=== PATIENT | female | born 1965 | race African-American/Black ===

== ENCOUNTER 2016-03-03 17:06 | Emergency (ER) | payer OTHER ==
[~2016-03-03] VITALS: Ht 175.3 cm; Wt 108.0 kg
[~2016-03-03 17:06] MED LIST: Ecotrin PO; NO HOME MEDS; TRAMADOL HCL50 MG PO
[2016-03-03 18:02] LABS: HEMATOCRIT 42.4 % (36.0-46.0); MCH 29.8 PG (29.0-34.0); MCHC 34.4 G/DL (30.0-36.0); MCV 86.5 FL (83-99); MEAN PLAT.VOLUME 8.7 uM^3 (9.5-12.4); PLATELET COUNT 258 K/uL (156-360); RBC DIS.WIDTH-CV 12.7 % (11.8-14.6); RBC DIS.WIDTH-SD 39.5 % (39-53); WHITE BLOOD COUNT 6.1 K/uL (4.1-10.2)
[2016-03-03 18:09] LABS: CHLORIDE 109 mEq/L (99-109); SODIUM 135 mEq/L (136-147)
[2016-03-03 18:10] LABS: GLUCOSE 80 mg/dL (70-99)
[2016-03-03 18:12] LABS: ANION GAP 7 MEQ/L (2-14)
[2016-03-03 18:14] LABS: GFR ESTIMATE (CALCULATED) > 59 mL/min/
[2016-03-03 18:15] LABS: UREA NITROGEN (BUN) 13 mg/dL (9-23)
[2016-03-03 18:26] LABS: TROP-I INTERPRETATION NEGATIVE; TROPONIN-I < 0.01 ng/mL (0.0-0.30)
[2016-03-03 19:48] LABS: TOTAL BILIRUBIN 0.3 mg/dL (0.0-1.0)
[2016-03-03 19:49] LABS: ALKALINE PHOSPHATASE 60 IU/L (3-129)
[2016-03-03 19:53] LABS: LIPASE 71 U/L (1.0-51.0)
[2016-03-03 20:19] LABS: TROP-I INTERPRETATION NEGATIVE; TROPONIN-I < 0.01 ng/mL (0.0-0.30)
[2016-03-03] MEDS ORDERED: SKELAXIN800 MG PO (20:25)
[2016-03-03] MEDS ORDERED: NAPROXEN500 MG PO (20:25)
[2016-03-03 20:41] VITALS: BP 137/91
== END 2016-03-03 20:43 | disposition home or self-care (01) ==
LOC: EME 17:06
PROVIDERS: Physician Assistant
DX: R07.9 Chest pain, unspecified (principal)
CPT/HCPCS: 71020; 80048; 80053; 83690; 84484; 85027; 93005; 99281; 99284

== ENCOUNTER 2016-07-31 01:10 | Inpatient (IN) | payer OTHER ==
[~2016-07-31] VITALS: Ht 177.8 cm; Wt 115.4 kg
[~2016-07-31 01:10] MED LIST changes: +NAPROXEN500 MG PO; +SKELAXIN800 MG PO
[2016-07-31 01:34] LABS: EOSINOPHIL (%) 0.4 % (0-5); IMMATURE GRANULOCYTE (%) 1.1 % (0.0-0.7); IMMATURE GRANULOCYTE COUNT 0.1 K/uL; INSTRUMENT ABS NEUTROPHIL CT 4.4 K/uL; LYMPHOCYTE COUNT 2.7 K/uL (1.0-2.8); MCH 29.2 PG (29.0-34.0); MCHC 32.8 G/DL (30.0-36.0); MCV 89.3 FL (83-99); MEAN PLAT.VOLUME 8.6 uM^3 (9.5-12.4); MONOCYTE (%) 3.9 % (3-12); MONOCYTE COUNT 0.3 K/uL (0-0.8); NEUTROPHIL (%) 58.8 % (45-76); NEUTROPHIL COUNT 4.4 K/uL (1.8-6.4); PLATELET COUNT 230 K/uL (156-360); RBC DIS.WIDTH-CV 12.6 % (11.8-14.6); RBC DIS.WIDTH-SD 41.8 % (39-53); RED BLOOD COUNT 4.48 M/uL (3.80-5.20); WHITE BLOOD COUNT 7.5 K/uL (4.1-10.2)
[2016-07-31 01:41] LABS: AMYLASE 60 IU/L (1-118); CHLORIDE 108 mEq/L (99-109); POTASSIUM 3.6 mEq/L (3.7-5.4); SODIUM 140 mEq/L (136-147)
[2016-07-31 01:42] LABS: GLUCOSE 144 mg/dL (70-99)
[2016-07-31 01:44] LABS: ANION GAP 11 MEQ/L (2-14)
[2016-07-31 01:46] LABS: GFR ESTIMATE (CALCULATED) > 59 mL/min/; SERUM ETHYL ALCOHOL < 10 mg/dL
[2016-07-31 01:47] LABS: UREA NITROGEN (BUN) 11 mg/dL (9-23)
[2016-07-31 01:49] LABS: LIPASE 47 U/L (1.0-51.0)
[2016-07-31 01:53] LABS: TROP-I INTERPRETATION NEGATIVE; TROPONIN-I < 0.01 ng/mL (0.0-0.30)
[2016-07-31 01:55] LABS: QUANTITATIVE HCG < 4.0 MIU/ML
[2016-07-31 03:39] LABS: ADD MIUA? YES; BILIRUBIN NEGATIVE; BLOOD MODERATE; COLOR YELLOW ((YELLOW)); GLUCOSE (STRIP) NEGATIVE; KETONES NEGATIVE; LEUKOCYTES TRACE; NITRITE NEGATIVE; PROTEIN (STRIP) NEGATIVE; UROBILINOGEN 0.2 MG/DL (0.2-1.0)
[2016-07-31 03:52] LABS: SPECIFIC GRAVITY 1.068 (1.000-1.030)
[2016-07-31 04:03] LABS: BACTERIA NONE SEEN /HPF; EPITHELIAL CELLS RARE /HPF; HYALINE CASTS 0-5 /LPF; MUCUS TRACE /LPF; RED BLOOD CELLS 0-5 /HPF (0-5); UCUL ADDED? NO
[2016-07-31 04:05] LABS: AMPHETAMINE NEGATIVE (500 ng/mL); BARBITURATES NEGATIVE (200 ng/mL); BENZODIAZEPINES NEGATIVE (150 ng/mL); COCAINE NEGATIVE (150 ng/mL); INTERNAL CONTROLS VALID? YES; METHADONE NEGATIVE (200 ng/mL); METHAMPHETAMINE NEGATIVE (500 ng/mL); OPIATES (MORPHINE) NEGATIVE (100 ng/mL); OXYCODONE NEGATIVE (100 ng/mL); PHENCYCLIDINE NEGATIVE (25 ng/mL); PROPOXYPHENE NEGATIVE (300 ng/mL); THC CANNABINOIDS NEGATIVE (50 ng/mL); TRICYCLIC ANTIDEPRESSANTS NEGATIVE (300 ng/mL)
[2016-07-31 05:49] VITALS: BP 108/70
[2016-07-31 06:15] LABS: EOSINOPHIL (%) 0.1 % (0-5); IMMATURE GRANULOCYTE (%) 0.4 % (0.0-0.7); LYMPHOCYTE COUNT 0.8 K/uL (1.0-2.8); MCH 29.6 PG (29.0-34.0); MCV 89.7 FL (83-99); MONOCYTE (%) 7.1 % (3-12); MONOCYTE COUNT 0.7 K/uL (0-0.8); NEUTROPHIL (%) 83.6 % (45-76); RBC DIS.WIDTH-CV 12.5 % (11.8-14.6); RBC DIS.WIDTH-SD 41.5 % (39-53); RED BLOOD COUNT 4.46 M/uL (3.80-5.20); WHITE BLOOD COUNT 9.6 K/uL (4.1-10.2)
[2016-07-31 06:45] LABS: ANION GAP 10 MEQ/L (2-14); CHLORIDE 107 MEQ/L (99-109); GFR ESTIMATE (CALCULATED) > 59 mL/min/; GLUCOSE 116 mg/dL (70-99); POTASSIUM 4.2 MEQ/L (3.7-5.4); SAMPLE HEMOLYSIS CHECK 1; SAMPLE ICTERIC CHECK 0; SAMPLE LIPEMIA CHECK 0; SODIUM 137 MEQ/L (136-147); UREA NITROGEN (BUN) 9 mg/dL (9-23)
[2016-07-31 06:51] LABS: MEAN PLAT.VOLUME 8.6 uM^3 (9.5-12.4); PLAT.SUFFICIENCY ADEQUATE; PLATELET CLUMPS PRESENT - PLATELET COUNTS APPEARS DECREASED
[2016-07-31 08:25] VITALS: BP 132/81
[2016-07-31 12:31] VITALS: BP 126/81
[2016-07-31 16:10] VITALS: BP 138/80
[2016-07-31 19:55] VITALS: BP 115/64
[2016-07-31 23:37] VITALS: BP 100/59
[2016-08-01 04:13] VITALS: BP 132/75
[2016-08-01 06:50] LABS: EOSINOPHIL (%) 0 % (0-5); HEMATOCRIT 34.9 % (36.0-46.0); IMMATURE GRANULOCYTE (%) 0.2 % (0.0-0.7); INSTRUMENT ABS NEUTROPHIL CT 3.4 K/uL; LYMPHOCYTE COUNT 1.4 K/uL (1.0-2.8); MCH 30.2 PG (29.0-34.0); MCHC 33.5 G/DL (30.0-36.0); MCV 89.9 FL (83-99); MEAN PLAT.VOLUME 9.1 uM^3 (9.5-12.4); MONOCYTE (%) 8.7 % (3-12); MONOCYTE COUNT 0.5 K/uL (0-0.8); NEUTROPHIL (%) 64.2 % (45-76); NEUTROPHIL COUNT 3.4 K/uL (1.8-6.4); PLATELET COUNT 180 K/uL (156-360); RBC DIS.WIDTH-CV 12.9 % (11.8-14.6); RBC DIS.WIDTH-SD 42.8 % (39-53); RED BLOOD COUNT 3.88 M/uL (3.80-5.20); WHITE BLOOD COUNT 5.3 K/uL (4.1-10.2)
[2016-08-01 06:53] LABS: ANION GAP 5 MEQ/L (2-14); CHLORIDE 106 MEQ/L (99-109); POTASSIUM 3.8 MEQ/L (3.7-5.4); SAMPLE HEMOLYSIS CHECK 0; SAMPLE ICTERIC CHECK 0; SAMPLE LIPEMIA CHECK 0; SODIUM 135 MEQ/L (136-147)
[2016-08-01 06:59] LABS: GFR ESTIMATE (CALCULATED) > 59 mL/min/; GLUCOSE 105 mg/dL (70-99); UREA NITROGEN (BUN) 7 mg/dL (9-23)
[2016-08-01 08:12] VITALS: BP 103/61
[2016-08-01 12:09] VITALS: BP 109/57
[2016-08-01 16:01] VITALS: BP 116/75
[2016-08-01 20:29] VITALS: BP 113/58
[2016-08-01 23:20] VITALS: BP 99/57
[2016-08-02 08:59] VITALS: BP 105/68
[2016-08-02 09:00] VITALS: BP 105/68
[2016-08-02 12:17] VITALS: BP 118/74
[2016-08-02 17:00] VITALS: BP 134/82
[2016-08-02 19:20] VITALS: BP 120/71
[2016-08-02 23:47] VITALS: BP 98/59
[2016-08-03 04:04] VITALS: BP 117/67
[2016-08-03 07:44] VITALS: BP 114/66
[2016-08-03] MEDS ORDERED: OXYCODONE-APAP1 EACH PO (09:07)
[2016-08-03] MEDS ORDERED: ELIQUIS2.5 MG PO (09:07)
[2016-08-03] MEDS ORDERED: PANTOPRAZOLE SO40 MG PO (09:08)
[2016-08-03] MEDS ORDERED: ONDANSETRON4 MG/2 ML IV (09:08)
[2016-08-03] MEDS ORDERED: DOCUSATE SODIU100 MG PO (09:08)
[2016-08-03 11:19] VITALS: BP 111/62
[2016-08-03 16:04] VITALS: BP 111/71
== END 2016-08-03 16:21 | DRG 552 ==
LOC: EME → TRA 01:10 → 3EAST 03:48 → EDOF 03:48 → 3EAST 03:48 → EDOF 05:09 → 3EAST 05:32
PROVIDERS: Emergency Medicine; Surgery
PROC: 0PSJXZZ Reposition Left Radius, External Approach (ICD-10-PCS; principal; 2016-07-31)
DX: S12.600A Unspecified displaced fracture of seventh cervical vertebra, initial encounter for closed fracture (principal); G89.11 Acute pain due to trauma; V43.62XA Car passenger injured in collision with other type car in traffic accident, initial encounter; S52.502A Unspecified fracture of the lower end of left radius, initial encounter for closed fracture; S00.03XA Contusion of scalp, initial encounter; S12.500A Unspecified displaced fracture of sixth cervical vertebra, initial encounter for closed fracture; S32.049A Unspecified fracture of fourth lumbar vertebra, initial encounter for closed fracture; S32.019A Unspecified fracture of first lumbar vertebra, initial encounter for closed fracture; S50.311A Abrasion of right elbow, initial encounter; G89.29 Other chronic pain; M54.9 Dorsalgia, unspecified; M51.37 Other intervertebral disc degeneration, lumbosacral region; S22.069A Unspecified fracture of T7-T8 vertebra, initial encounter for closed fracture; S93.402A Sprain of unspecified ligament of left ankle, initial encounter
CPT/HCPCS: 70450; 71260; 72125; 72129; 72132; 73080; 73100; 73110; 73610; 74177; 80048; 80048 91; 81003; 82150; 83690; 84484; 84702; 85025; 85025 91; 86900; 86901; 93005; 97530 GP; 99281; 99285; C9113; G0480; J0690; J1170; J2270; J2405; J3010; J7030

== ENCOUNTER 2016-08-03 10:45 | Inpatient (IN) | payer OTHER ==
[~2016-08-03] VITALS: Ht 175.3 cm; Wt 105.0 kg
[~2016-08-03 10:45] MED LIST changes: +DOCUSATE SODIU100 MG PO; +ELIQUIS2.5 MG PO; +ONDANSETRON4 MG/2 ML IV; +OXYCODONE-APAP1 EACH PO; +PANTOPRAZOLE SO40 MG PO
[2016-08-03 16:42] VITALS: BP 127/71
[2016-08-04 00:02] VITALS: BP 119/68
[2016-08-04 05:47] VITALS: BP 130/88
[2016-08-04 05:55] LABS: HEMATOCRIT 37.2 % (36.0-46.0); MCH 30.8 PG (29.0-34.0); MCHC 34.7 G/DL (30.0-36.0); MCV 88.8 FL (83-99); MEAN PLAT.VOLUME 8.8 uM^3 (9.5-12.4); PLATELET COUNT 254 K/uL (156-360); RBC DIS.WIDTH-CV 12.5 % (11.8-14.6); RBC DIS.WIDTH-SD 40.5 % (39-53); RED BLOOD COUNT 4.19 M/uL (3.80-5.20); WHITE BLOOD COUNT 4.5 K/uL (4.1-10.2)
[2016-08-04 06:38] LABS: ALKALINE PHOSPHATASE 44 IU/L (3-129); ANION GAP 7 MEQ/L (2-14); CHLORIDE 106 MEQ/L (99-109); GFR ESTIMATE (CALCULATED) > 59 mL/min/; GLUCOSE 91 mg/dL (70-99); POTASSIUM 4.2 MEQ/L (3.7-5.4); SAMPLE HEMOLYSIS CHECK 0; SAMPLE ICTERIC CHECK 0; SAMPLE LIPEMIA CHECK 0; SODIUM 139 MEQ/L (136-147); TOTAL BILIRUBIN 0.6 MG/DL (0.0-1.0); UREA NITROGEN (BUN) 11 mg/dL (9-23)
[2016-08-04 15:47] VITALS: BP 127/95
[2016-08-05 05:27] VITALS: BP 103/61
[2016-08-05 15:03] VITALS: BP 104/59
[2016-08-06 05:11] VITALS: BP 108/59
[2016-08-06 15:06] VITALS: BP 134/78
[2016-08-07 05:15] VITALS: BP 104/59
[2016-08-07 15:27] VITALS: BP 120/74
[2016-08-08 05:10] VITALS: BP 131/87
[2016-08-08 15:30] VITALS: BP 125/81
[2016-08-08 15:55] VITALS: BP 176/96
[2016-08-09 06:00] VITALS: BP 121/72
[2016-08-09 15:37] VITALS: BP 84/53
[2016-08-09] MEDS ORDERED: PERI-COLACE TA1 EACH PO (17:06)
[2016-08-09] MEDS ORDERED: POLYETHYLENE GL17 GM PO (17:06)
[2016-08-09] MEDS ORDERED: ASCORBIC ACID500 MG PO (17:07)
[2016-08-09] MEDS ORDERED: NEURONTIN300 MG PO (17:08)
[2016-08-09] MEDS ORDERED: MULTIPLE VITAM1 EAC1 PO (17:08)
[2016-08-09] MEDS ORDERED: FOLIC ACID1 MG PO (17:08)
[2016-08-09] MEDS ORDERED: LAXATIVE5 M1 PO (17:09)
[2016-08-09] MEDS ORDERED: MILK OF MAGNESI10 ML PO (17:09)
[2016-08-09] MEDS ORDERED: ONDANSETRON ODT4 MG PO (17:10)
[2016-08-09] MEDS ORDERED: DULCOLAX10 MG PR (17:11)
[2016-08-09] MEDS ORDERED: PROMETHAZINE HC25 M1 PO (17:11)
[2016-08-09] MEDS ORDERED: PERCOCET 5/31 TABLET PO (17:13)
[2016-08-09] MEDS ORDERED: ELIQUIS2.5 MG PO (17:14)
[2016-08-09] MEDS ORDERED: COLACE100 MG PO (17:15)
[2016-08-09 18:07] VITALS: BP 131/86
[2016-08-10 05:18] VITALS: BP 105/58
[2016-08-10 16:20] VITALS: BP 106/68
[2016-08-11 05:11] VITALS: BP 119/70
[2016-08-11 13:30] LABS: ALKALINE PHOSPHATASE 98 IU/L (3-129); ANION GAP 7 MEQ/L (2-14); CHLORIDE 104 MEQ/L (99-109); GFR ESTIMATE (CALCULATED) > 59 mL/min/; GLUCOSE 133 mg/dL (70-99); POTASSIUM 3.6 MEQ/L (3.7-5.4); SAMPLE HEMOLYSIS CHECK 0; SAMPLE ICTERIC CHECK 0; SAMPLE LIPEMIA CHECK 0; SODIUM 136 MEQ/L (136-147); TOTAL BILIRUBIN 0.7 MG/DL (0.0-1.0); UREA NITROGEN (BUN) 11 mg/dL (9-23)
[2016-08-11 13:31] LABS: EOSINOPHIL (%) 0.1 % (0-5); HEMATOCRIT 36.1 % (36.0-46.0); IMMATURE GRANULOCYTE (%) 0.3 % (0.0-0.7); LYMPHOCYTE COUNT 2.3 K/uL (1.0-2.8); MCH 30.2 PG (29.0-34.0); MCHC 33.8 G/DL (30.0-36.0); MCV 89.4 FL (83-99); MEAN PLAT.VOLUME 8.4 uM^3 (9.5-12.4); MONOCYTE (%) 3.7 % (3-12); MONOCYTE COUNT 0.5 K/uL (0-0.8); NEUTROPHIL (%) 77.9 % (45-76); PLATELET COUNT 296 K/uL (156-360); RBC DIS.WIDTH-CV 12.7 % (11.8-14.6); RBC DIS.WIDTH-SD 41.6 % (39-53); RED BLOOD COUNT 4.04 M/uL (3.80-5.20); WHITE BLOOD COUNT 12.8 K/uL (4.1-10.2)
[2016-08-11] MEDS ORDERED: POLYETHYLENE GL17 GM PO (14:32)
[2016-08-11] MEDS ORDERED: GABAPENTIN300 MG PO (14:32)
[2016-08-11] MEDS ORDERED: PANTOPRAZOLE SO40 MG PO (14:32)
[2016-08-11] MEDS ORDERED: ENDOCET 5-3251 EACH PO (14:32)
[2016-08-11] MEDS ORDERED: PERI-COLACE TA1 EACH PO (14:32)
[2016-08-11 16:17] VITALS: BP 124/68
[2016-08-12 05:23] VITALS: BP 124/71
[2016-08-12] MEDS ORDERED: PROMETHAZINE HC25 M1 PO (11:37)
[2016-08-12] MEDS ORDERED: SORE THROAT SP177 M1 MM (11:37)
[2016-08-12] MEDS ORDERED: ASPIRIN EC325 MG PO (11:37)
== END 2016-08-12 12:32 | disposition home or self-care (01) | DRG 560 ==
LOC: 3WEST 10:45
PROVIDERS: Physical Medicine & Rehabilitation Pain Medicine; Psychiatry & Neurology Neurology
PROC: F07M0ZZ Range of Motion and Joint Mobility Treatment of Musculoskeletal System - Whole Body (ICD-10-PCS; principal; 2016-08-03)
DX: S12.500D Unspecified displaced fracture of sixth cervical vertebra, subsequent encounter for fracture with routine healing (principal); R26.2 Difficulty in walking, not elsewhere classified; E87.1 Hypo-osmolality and hyponatremia; S12.600D Unspecified displaced fracture of seventh cervical vertebra, subsequent encounter for fracture with routine healing; S32.019D Unspecified fracture of first lumbar vertebra, subsequent encounter for fracture with routine healing; S32.049D Unspecified fracture of fourth lumbar vertebra, subsequent encounter for fracture with routine healing; S22.069D Unspecified fracture of T7-T8 vertebra, subsequent encounter for fracture with routine healing; S62.102D Fracture of unspecified carpal bone, left wrist, subsequent encounter for fracture with routine healing; S05.12XD Contusion of eyeball and orbital tissues, left eye, subsequent encounter; S00.83XD Contusion of other part of head, subsequent encounter; S60.511D Abrasion of right hand, subsequent encounter; S50.311D Abrasion of right elbow, subsequent encounter; S06.5X9D Traumatic subdural hemorrhage with loss of consciousness of unspecified duration, subsequent encounter; H11.33 Conjunctival hemorrhage, bilateral; R07.9 Chest pain, unspecified; M51.37 Other intervertebral disc degeneration, lumbosacral region; M48.06 Spinal stenosis, lumbar region; D62 Acute posthemorrhagic anemia; N20.0 Calculus of kidney; D25.9 Leiomyoma of uterus, unspecified; E87.6 Hypokalemia; G47.00 Insomnia, unspecified; H91.90 Unspecified hearing loss, unspecified ear; V48.6XXD Car passenger injured in noncollision transport accident in traffic accident, subsequent encounter; Z83.3 Family history of diabetes mellitus
CPT/HCPCS: 80053; 85025; 85027; 96125 GN; 97110 GO; 97530 GP; J1170; J7120

== ENCOUNTER 2016-08-10 10:05 | Day surgery (SDC) | payer OTHER ==
[~2016-08-10] VITALS: Ht 175.3 cm; Wt 105.0 kg
[2016-08-10 09:13] VITALS: BP 132/89
[~2016-08-10 10:05] MED LIST changes: +ASCORBIC ACID500 MG PO; +COLACE100 MG PO; +DULCOLAX10 MG PR; +FOLIC ACID1 MG PO; +LAXATIVE5 M1 PO; +MILK OF MAGNESI10 ML PO; +MULTIPLE VITAM1 EAC1 PO; +NEURONTIN300 MG PO; +ONDANSETRON ODT4 MG PO; +PERCOCET 5/31 TABLET PO; +PERI-COLACE TA1 EACH PO; +POLYETHYLENE GL17 GM PO; +PROMETHAZINE HC25 M1 PO
[2016-08-10 14:42] VITALS: BP 139/89
[2016-08-11] MEDS ORDERED: ENDOCET 5-3251 EACH PO (14:32)
[2016-08-11] MEDS ORDERED: PANTOPRAZOLE SO40 MG PO (14:32)
[2016-08-11] MEDS ORDERED: PERI-COLACE TA1 EACH PO (14:32)
[2016-08-11] MEDS ORDERED: GABAPENTIN300 MG PO (14:32)
[2016-08-11] MEDS ORDERED: POLYETHYLENE GL17 GM PO (14:32)
== END 2016-08-10 15:25 | disposition home or self-care (01) ==
LOC: SDC 10:05
PROC: 0PSJXZZ Reposition Left Radius, External Approach (ICD-10-PCS; principal; 2016-08-10)
DX: S52.532A Colles' fracture of left radius, initial encounter for closed fracture (principal)
CPT/HCPCS: 73110; 76000; J0330; J0690; J1100; J1170; J2250; J2405; J3010

== ENCOUNTER → 2017-01-01 | Outpatient (CLI) | payer OTHER ==
[~2017-01-01] MED LIST changes: +ASPIRIN EC325 MG PO; +ENDOCET 5-3251 EACH PO; +GABAPENTIN300 MG PO; +SORE THROAT SP177 M1 MM
== END | disposition home or self-care (01) ==
LOC: NUC 07:30
DX: R94.6 Abnormal results of thyroid function studies (principal)
CPT/HCPCS: 78014; 78999; A9516